=== PATIENT | female | born 1965 | race Caucasian/White ===

== ENCOUNTER 2017-10-10 13:01 | Emergency (ER) | payer SELFPAY | END 2017-10-10 13:20 | disposition left against medical advice (07) | LOC: NEPD 13:01 | DX: Z00.00 Encounter for general adult medical examination without abnormal findings (principal); Z53.21 Procedure and treatment not carried out due to patient leaving prior to being seen by health care provider | CPT/HCPCS: 99281 ==

== ENCOUNTER 2017-12-13 04:34 | Emergency (ER) | payer SELFPAY ==
[~2017-12-13] VITALS: Ht 165.1 cm; Wt 60.0 kg
[2017-12-13 04:38] VITALS: BP 127/77; PULSE 82; RESP 16; TEMP 98.1; O2SAT 100
--- NOTE | 2017-12-13 05:52 | PD ---
HPI Chief Complaint: Medical Clearance Time Seen by Provider: 05:26 Travel History International Travel<30 days: No Contact w/Intl Traveler<30days: No Traveled to known affect area: No History of Present Illness HPI 52-year-old white female presents to emergency department by EMS requesting detox. Patient has a long-standing history of alcohol abuse. She is concerned that if she does not get detox she's go one up killing herself with alcohol. He feels anxious and distraught. She denies any toxic ingestions. No homicidal or suicidal ideation. Symptoms are moderate. No alleviating factors. Exacerbated by alcohol use. History Past Medical Histgory Narrative Medical Chronic alcohol abuse Medical History: Denies Significant Hx Tetanus Vaccination: < 5 Years Social History Alcohol Use: Yes (DAILY) Tobacco Use: No Allergies-Medications (Allergen,Severity, Reaction): Coded Allergies: levofloxacin (Unverified Allergy, Severe, 12/13/17) Reported Meds & Prescriptions Reported Meds & Active Scripts Active No Active Prescriptions or Reported Medications Review of Systems Except as stated in HPI: all other systems reviewed are Neg Physical Exam Narrative GENERAL: This is a well-nourished, well-developed patient, in no apparent distress. SKIN: No rashes, ecchymoses or lesions. Warm and dry. HEAD: Atraumatic. Normocephalic. EYES: PERRL, EOMI, no discharge or injection. No scleral icterus. EARS: Clear NOSE: Nasal turbinates appear normal. THROAT: Mucosa pink and moist. Airway patent. NECK: Trachea midline. supple, moves head freely. LUNGS: Clear to auscultation. CV: Regular in rhythm. ABDOMEN: Soft nontender. EXT: No clubbing cyanosis or edema. Data Data Last Documented VS Vital Signs Date Time Temp Pulse Resp B/P (MAP) Pulse Ox O2 Delivery O2 Flow Rate FiO2 12/13/17 04:38 98.1 82 16 127/77 (94) 100 MDM Medical Screen Exam Complete: Yes Emergency Medical Condition: No Differential Diagnosis Differential diagnoses: Alcohol intoxication, substance abuse, electrolyte abnormality, malingering Narrative Course We have contacted Dragan Garcia and there are unfortunately no detox beds available A medical screening exam was performed: At the time of evaluation the presenting medical condition was determined not to be of an emergent nature. The patient was given the option of receiving additional care, but declined. Patient was given options for additional community resources from which to obtain care. The Patient Has Been advised to seek medical attention for their presenting complaint. The patient has been advised to return to the ER at any time if an emergent condition develops. Primary Impression: Encounter for medical screening examination Scripts No Active Prescriptions or Reported Meds Condition: Coleman Alcantar Dec 13, 2017 05:52
== END 2017-12-13 06:14 | disposition left against medical advice (07) ==
LOC: NEPD 04:34
DX: F10.10 Alcohol abuse, uncomplicated (principal)
CPT/HCPCS: 99281

== ENCOUNTER 2018-01-05 21:56 | Emergency (ER) | payer OTHER ==
[~2018-01-05] VITALS: Ht 165.1 cm; Wt 60.0 kg
[2018-01-05 22:04] VITALS: BP 137/80; PULSE 98; TEMP 98; O2SAT 96
[2018-01-05] MEDS ORDERED: SODIUM CHLOR 0.9% 1000 ML INJ 1,000 ML IV SCH (22:09)
[2018-01-05] MEDS ORDERED: SODIUM CHLORIDE 0.9% FLUSH 10 ML FLUSH IV FLUSH PRN (22:15)
--- NOTE | 2018-01-05 22:16 | PD ---
HPI Chief Complaint: Alcohol/Drug Intoxication Time Seen by Provider: 22:09 Travel History International Travel<30 days: No Contact w/Intl Traveler<30days: No History of Present Illness HPI Patient is a 52-year-old female presenting to the emergency department under [place] act due to alcohol intoxication. Patient was actually at [facility] 3 times today and discharged, she reports increased falls. She was home when she called the police and was evaluated and brought into the hospital here. Patient reports alcohol use since the beginning of August, she states she has lost 2 children in different years around [place] time. She reports that she binge drinks every year around this time. She does feel sad and depressed but denies any suicidal ideations. Patient reports right upper quadrant abdominal pain and edema in her legs. This started per her report from drinking less water and more alcohol. Patient states the pain is cramping and achy. Her pain is a 5 out of 10. Pain is exacerbated to touch, though alleviating factors. Patient denies any homicidal ideations or hallucinations as well. FOR[facility]LY [facility], [facility] Past Medical History Depression: Yes Diminished Hearing: No Immunizations Current: Yes Past Surgical History Appendectomy: Yes Social History Alcohol Use: Yes (DAILY) Tobacco Use: No Substance Use: No Allergies-Medications (Allergen,Severity, Reaction): Coded Allergies: levofloxacin (Unverified Allergy, Severe, 01/05/18) Reported Meds & Prescriptions Reported Meds & Active Scripts Active No Active Prescriptions or Reported Medications Review of Systems Except as stated in HPI: all other systems reviewed are Neg Cardiovascular: Positive: Edema Gastrointestinal: Positive: Abdominal Pain, Other (Bloating) Psychiatric: Positive: Depression, Substance Abuse Physical Exam Narrative GENERAL: Well-developed, well-nourished, alert, intoxicated appearing female. Stenting in no acute distress. SKIN: Warm and dry. HEAD: Atraumatic. Normocephalic. EYES: Pupils equal and round. No scleral icterus. No injection or drainage. ENT: No nasal bleeding or discharge. Mucous membranes pink and moist. NECK: Trachea midline. No JVD. CARDIOVASCULAR: Regular rate and rhythm. 1+ pitting edema to bilateral lower extremities. RESPIRATORY: No accessory muscle use. Clear to auscultation. Breath sounds equal bilaterally. GASTROINTESTINAL: Abdomen soft, tender to palpation right upper quadrant, nondistended. Hepatic and splenic margins not palpable. Positive bowel sounds, positive guarding. MUSCULOSKELETAL: Extremities without clubbing, cyanosis, or edema. No obvious deformities. NEUROLOGICAL: Awake and alert. No obvious cranial nerve deficits. Motor grossly within normal limits. Five out of 5 muscle strength in the arms and legs. Normal speech. PSYCHIATRIC: Appropriate mood and affect; insight and judgment impaired. Data Data Last Documented VS Vital Signs Date Time Temp Pulse Resp B/P (MAP) Pulse Ox O2 Delivery O2 Flow Rate FiO2 01/05/18 22:04 98.0 98 137/80 (99) 96 Orders Orders Alcohol (Ethanol) (01/05/18 21:58) Complete Blood Count With Diff (01/05/18 22:09) Comprehensive Metabolic Panel (01/05/18 22:09) Lipase (01/05/18 22:09) Urinalysis - C+S If Indicated (01/05/18 22:09) Iv Access Insert/Monitor (01/05/18 22:09) Ecg Monitoring (01/05/18 22:09) Oximetry (01/05/18 22:09) Sodium Chlor 0.9% 1000 Ml Inj (Ns 1000 M (01/05/18 22:09) Sodium Chloride 0.9% Flush (Ns Flush) (01/05/18 22:15) Psych Screen (01/05/18 22:16) MDM Medical Decision Making Medical Screen Exam Complete: Yes Emergency Medical Condition: Yes Differential Diagnosis Cirrhosis versus intoxication versus metabolic abnormality versus depression versus other Narrative Course Patient is a 52-year-old female presenting under [place] act due to intoxication. Labs ordered and pending. Patient admits to drinking at least 6 beers today. When sober patient will be evaluated by psych screener. Care of patient transferred to Coleman WHITTINGTON, he will determine patient's disposition. Scripts No Active Prescriptions or Reported Meds Kaylin Hernandez Jan 05, 2018 22:16
[2018-01-05 22:57] LABS: AMORPHOUS SEDIMENT, URINE RARE; BACTERIA, URINE RARE /hpf; BILIRUBIN, URINE NEG (NEG); BLOOD, URINE NEG (NEG); GLUCOSE,URINE NEG (NEG); KETONE, URINE NEG (NEG); NITRITE,URINE POS (NEG); SQUAMOUS EPITHELIAL CELL URINE 3 /hpf (0-5); URINE COLOR LIGHT-YELLOW (YELLW/STRAW); URINE LEUKOCYTE ESTERASE SMALL (NEG)
[2018-01-05 22:58] LABS: AUTOMATED NEUTROPHIL # 2.4 TH/MM3 (1.8-7.7); BASOPHIL # 0.1 TH/MM3 (0-0.2); EOSINOPHIL # 0.2 TH/MM3 (0-0.4); EOSINOPHIL % 2.6 % (0.0-4.0); HEMOGLOBIN 11.4 GM/DL (11.6-15.3); LYMPH % 56.6 % (9.0-44.0); LYMPHOCYTE # 4.2 TH/MM3 (1.0-4.8); MEAN CELL VOLUME 97.3 FL (80.0-100.0); MEAN CORPUSCULAR HEMOGLOBIN 33.5 PG (27.0-34.0); MEAN CORPUSCULAR HGB CONC 34.5 % (32.0-36.0); MEAN PLATELET VOLUME 7.8 FL (7.0-11.0); MONO % 6.6 % (0.0-8.0); MONOCYTE # 0.5 TH/MM3 (0-0.9); NEUT % 33.2 % (16.0-70.0); PLATELET COUNT 199 TH/MM3 (150-450); RED BLOOD COUNT 3.39 MIL/MM3 (4.00-5.30); RED CELL DISTRIBUTION WIDTH 13.2 % (11.6-17.2); WHITE BLOOD COUNT 7.4 TH/MM3 (4.0-11.0)
--- NOTE | 2018-01-05 23:19 | PD ---
Physical Exam Date Seen by Provider: Jan 05, 2018 Time Seen by Provider: 23:18 Data Data Last Documented VS Vital Signs Date Time Temp Pulse Resp B/P (MAP) Pulse Ox O2 Delivery O2 Flow Rate FiO2 01/06/18 00:12 91 16 97 Room Air 01/05/18 22:04 98.0 137/80 (99) Orders Orders Complete Blood Count With Diff (01/05/18 22:09) Comprehensive Metabolic Panel (01/05/18 22:09) Lipase (01/05/18 22:09) Urinalysis - C+S If Indicated (01/05/18 22:09) Iv Access Insert/Monitor (01/05/18 22:09) Ecg Monitoring (01/05/18 22:09) Oximetry (01/05/18 22:09) Sodium Chlor 0.9% 1000 Ml Inj (Ns 1000 M (01/05/18 22:09) Sodium Chloride 0.9% Flush (Ns Flush) (01/05/18 22:15) Psych Screen (01/05/18 22:16) Alcohol (Ethanol) (01/05/18 22:30) Urine Culture (01/05/18 22:15) Cephalexin (Keflex) (01/06/18 00:45) Drug Screen, Random Urine (01/06/18 03:01) Labs Laboratory Tests Test 01/05/18 22:15 01/05/18 22:30 Urine Color LIGHT-YELLOW Urine Turbidity CLEAR Urine pH 6.0 Urine Specific [place] 1.002 Urine Protein NEG mg/dL Urine Glucose (UA) NEG mg/dL Urine Ketones NEG mg/dL Urine Occult Blood NEG Urine Nitrite POS Urine Bilirubin NEG Urine Urobilinogen LESS THAN 2.0 MG/DL Urine Leukocyte Esterase SMALL Urine RBC 1 /hpf Urine WBC 10 /hpf Urine Squamous Epithelial Cells 3 /hpf Urine Amorphous Sediment RARE Urine Bacteria RARE /hpf Microscopic Urinalysis Comment CULTURE INDICATED White Blood Count 7.4 TH/MM3 Red Blood Count 3.39 MIL/MM3 Hemoglobin 11.4 GM/DL Hematocrit 33.0 % Mean Corpuscular Volume 97.3 FL Mean Corpuscular Hemoglobin 33.5 PG Mean Corpuscular Hemoglobin Concent 34.5 % Red Cell Distribution Width 13.2 % Platelet Count 199 TH/MM3 Mean Platelet Volume 7.8 FL Neutrophils (%) (Auto) 33.2 % Lymphocytes (%) (Auto) 56.6 % Monocytes (%) (Auto) 6.6 % Eosinophils (%) (Auto) 2.6 % Basophils (%) (Auto) 1.0 % Neutrophils # (Auto) 2.4 TH/MM3 Lymphocytes # (Auto) 4.2 TH/MM3 Monocytes # (Auto) 0.5 TH/MM3 Eosinophils # (Auto) 0.2 TH/MM3 Basophils # (Auto) 0.1 TH/MM3 CBC Comment AUTO DIFF Differential Comment AUTO DIFF CONFIRMED Platelet Estimate NORMAL Platelet Morphology Comment NORMAL Blood Urea Nitrogen 4 MG/DL Creatinine 0.45 MG/DL Random Glucose 79 MG/DL Total Protein 9.2 GM/DL Albumin 2.7 GM/DL Calcium Level 7.5 MG/DL Alkaline Phosphatase 123 U/L Aspartate Amino Transf (AST/SGOT) 102 U/L Alanine Aminotransferase (ALT/SGPT) 46 U/L Total Bilirubin 0.4 MG/DL Sodium Level 146 MEQ/L Potassium Level 3.2 MEQ/L Chloride Level 111 MEQ/L Carbon Dioxide Level 25.9 MEQ/L Anion Gap 9 MEQ/L Estimat Glomerular Filtration Rate 146 ML/MIN Lipase 292 U/L Ethyl Alcohol Level 298 MG/DL MDM Medical Record Reviewed: Yes Supervised Visit with RAQUEL: No Differential Diagnosis MDM: High Differential diagnoses: Schizophrenia, schizoaffective disorder, bipolar, anxiety, depression, adjustment reaction, mood disorder NOS, ODD, depressive disorder NOS, psychosis NOS, substance induced mood disorder,infection, electrolyte abnormality, malingering. Narrative Course Mental health screening discussed with the patient. Psychiatric screen ordered. I was asked by the evening nurse practitioner to facilitate the patient's psychological evaluation and reevaluate the patient due to her alcohol intoxication. The patient has been given normal saline bolus. She has been allowed to sleep it off here in the ER. The patient will be seen by the psych screener. Patient urinalysis positive for UTI. She is given Keflex 500 mg p.o. and a prescription. Diagnosis Primary Impression: Alcohol-induced mood disorder Patient Instructions: General Instructions Med/Other Pt SpecificInfo: Prescription(s) given Scripts Cephalexin (Keflex) 500 Mg Capsule 500 MG PO Q8H for Infection for 5 Days, #15 CAP 0 Refills Prov: Ayden Vasquez MD 01/06/18 Condition: Stable Coleman Grimaldo Jan 05, 2018 23:19
[2018-01-05 23:23] LABS: ALKALINE PHOSPHATASE 123 U/L (45-117); ALT (GPT) 46 U/L (10-53); TOTAL BILIRUBIN ADULT 0.4 MG/DL (0.2-1.0); TOTAL PROTEIN 9.2 GM/DL (6.4-8.2)
[2018-01-06 00:12] VITALS: PULSE 91; RESP 16; O2SAT 97
[2018-01-06] MEDS ORDERED: CEPH-460 PO (00:37)
[2018-01-06] MEDS ORDERED: CEPHALEXIN MONOHYDRATE 500 MG CAP PO ONE (00:45)
[2018-01-06 01:04] LABS: ALBUMIN 2.7 GM/DL (3.4-5.0); AST (GOT) 102 U/L (15-37); BICARBONATE 25.9 MEQ/L (21.0-32.0); BLOOD UREA NITROGEN 4 MG/DL (7-18); CALCIUM 7.5 MG/DL (8.5-10.1); CHLORIDE 111 MEQ/L (98-107); CREATININE 0.45 MG/DL (0.50-1.00); GLOMERULAR FILTRATION RATE 146 ML/MIN (>89); GLUCOSE,RANDOM 79 MG/DL (74-106); SODIUM (NA) 146 MEQ/L (136-145)
[2018-01-06] MEDS ORDERED: POTASSIUM CHLORIDE 20 MEQ CONTROLLED RELEASE TAB PO ONE (03:30)
[2018-01-06 03:50] VITALS: BP 131/73; PULSE 66; RESP 18; TEMP 98; O2SAT 100
== END 2018-01-06 06:37 | disposition home or self-care (01) ==
LOC: NEDAMB 21:56 → NEPD 01-06 06:37
DX: F10.14 Alcohol abuse with alcohol-induced mood disorder (principal); F10.129 Alcohol abuse with intoxication, unspecified; Y90.8 Blood alcohol level of 240 mg/100 ml or more
CPT/HCPCS: 80053; 80307; 81001; 83690; 85025; 87077; 87086; 87186; 96360; 99284; J7030